=== PATIENT | male | born 1995 | race Caucasian/White ===

== ENCOUNTER 2017-04-25 21:49 | Emergency (ER) | payer MEDICAID, OTHER ==
[2017-04-25 21:54] VITALS: BP 116/64; PULSE 58; RESP 18; TEMP 98; O2SAT 98
--- NOTE | 2017-04-25 22:23 | ED PDOC ---
HPI: General Adult Time Seen by Provider: 04/25/17 22:09 Chief Complaint (Nursing): Medical Clearance Chief Complaint (Provider): Right wrist pain History Per: Patient History/Exam Limitations: no limitations Onset/Duration Of Symptoms: Days (3) Current Symptoms Are (Timing): Still Present Severity: Mild Pain Scale Rating Of: 4 Additional Complaint(s): PT states he fell 3 days ago and hurt the right wrist. Pt states that he was seen at an urgent care and diagnosed with wrist sprain. PT states his x-rays were normal. Pt states he also has a seizure disorder and takes Kepra 500mg daily. Pt has no psychiatric history and denies SI/HI. Pt calm and cooperative in ER Past Medical History Reviewed: Historical Data, Nursing Documentation, Vital Signs Vital Signs: Last Vital Signs Temp 98 F 04/25/17 21:51 Pulse 58 L 04/25/17 21:51 Resp 18 04/25/17 21:51 BP 116/64 04/25/17 21:51 Pulse Ox 98 04/25/17 21:51 - Medical History PMH: Migraine - Surgical History Surgical History: No Surg Hx - Family History Family History: States: Unknown Family Hx - Living Arrangements Living Arrangements: With Family - Social History Current smoker - smoking cessation education provided: Yes Alcohol: None Drugs: Denies - Immunization History Hx Tetanus Toxoid Vaccination: No Hx Influenza Vaccination: No Hx Pneumococcal Vaccination: No - Home Medications Home Medications: Ambulatory Orders Medication Instructions Recorded levETIRAcetam [Keppra] 500 mg PO DAILY #10 tab 04/25/17 - Allergies Allergies/Adverse Reactions: Allergies Allergy/AdvReac Type Severity Reaction Status Date / Time No Known Allergies Allergy Verified 04/25/17 21:54 Review of Systems ROS Statement: Except As Marked, All Systems Reviewed And Found Negative Constitutional: Negative for: Fever, Chills Musculoskeletal: Positive for: Other (RIght wrsit pain ) Physical Exam - Reviewed Nursing Documentation Reviewed: Yes Vital Signs Reviewed: Yes - Physical Exam Appears: Positive for: Well, Non-toxic, No Acute Distress Head Exam: Positive for: ATRAUMATIC, NORMAL INSPECTION, NORMOCEPHALIC Skin: Positive for: Normal Color, Warm, DRY Eye Exam: Positive for: Normal appearance, EOMI, PERRL ENT: Positive for: Normal ENT Inspection Neck: Positive for: Normal, Painless ROM Cardiovascular/Chest: Positive for: Regular Rate, Rhythm Respiratory: Positive for: Normal Breath Sounds. Negative for: Accessory Muscle Use, Respiratory Distress Gastrointestinal/Abdominal: Positive for: Normal Exam, Bowel Sounds, Soft Back: Positive for: Normal Inspection Extremity: Positive for: Normal ROM Neurologic/Psych: Positive for: Alert, Oriented - ECG O2 Sat by Pulse Oximetry: 98 Disposition - Clinical Impression Clinical Impression: Seizure disorder, Wrist pain - Disposition Disposition Time: 22:23 Condition: STABLE Additional Instructions: Pt is medically and psychiatrically stable for incarceration. Prescriptions: levETIRAcetam [Keppra] 500 mg PO DAILY #10 tab Instructions: Epilepsy (ED) Forms: [employer] (Danish)
== END 2017-04-25 22:56 ==
LOC: H.ER 21:49
DX: Z02.89 Encounter for other administrative examinations (principal); G40.909 Epilepsy, unspecified, not intractable, without status epilepticus; M25.531 Pain in right wrist

== ENCOUNTER 2018-08-07 23:04 | Emergency (ER) | payer MEDICAID ==
--- NOTE | 2018-08-07 23:35 | ED PDOC ---
HPI: Psych/Substance Abuse Time Seen by Provider: 08/07/18 23:14 Chief Complaint (Nursing): Substance Abuse Chief Complaint (Provider): Substance abuse History Per: Patient, EMS History/Exam Limitations: no limitations Onset/Duration Of Symptoms: Days (today) Additional Complaint(s): Pt. mom called EMS as she found him unresponsive at home. EMS gave narcan by IV and pt. responded well. He ripped out his IV and was aggressive. Brought to the ER for further eval. Pt. states he took 1 oxycontin 30mg and 2 xanax trying to get high. Denies suicidal ideation or homicidal ideation. Had alcohol. Denies trying to take meds to hurt self. On keppra for seizures. EMS stated to staff that he was stating he was suicidal when he was with them. Past Medical History Reviewed: Nursing Documentation, Vital Signs Vital Signs: Last Vital Signs Temp 98.5 F 08/07/18 23:08 Pulse 98 H 08/07/18 23:08 Resp 18 08/07/18 23:08 BP 121/78 08/07/18 23:08 Pulse Ox 99 08/07/18 23:08 - Medical History PMH: Seizures Denies: Diabetes - Surgical History Surgical History: No Surg Hx - Family History Family History: States: Unknown Family Hx - Social History Drugs: Opiates, Prescription medications - Immunization History Hx Tetanus Toxoid Vaccination: No Hx Influenza Vaccination: No Hx Pneumococcal Vaccination: No - Home Medications Home Medications: Ambulatory Orders Medication Instructions Recorded levETIRAcetam [Keppra] 500 mg PO DAILY #10 tab 04/25/17 Polymyxin/Trimethoprim Sulfate 1 drop RIGHTEYE Q3 #1 bottle 05/10/18 [Polytrim Ophth Soln] - Allergies Allergies/Adverse Reactions: Allergies Allergy/AdvReac Type Severity Reaction Status Date / Time No Known Allergies Allergy Verified 08/07/18 23:08 Review of Systems ROS Statement: Except As Marked, All Systems Reviewed And Found Negative Psych: Positive for: Suicidal ideation Physical Exam - Reviewed Nursing Documentation Reviewed: Yes Vital Signs Reviewed: Yes - Physical Exam Appears: Positive for: Non-toxic, No Acute Distress Head Exam: Positive for: ATRAUMATIC, NORMAL INSPECTION, NORMOCEPHALIC Skin: Positive for: Normal Color, Warm, DRY Eye Exam: Positive for: EOMI, Normal appearance, PERRL ENT: Positive for: Normal ENT Inspection Neck: Positive for: Normal, Painless ROM Cardiovascular/Chest: Positive for: Regular Rate, Rhythm Respiratory: Positive for: CNT, Normal Breath Sounds Gastrointestinal/Abdominal: Positive for: Normal Exam, Soft. Negative for: Tenderness Back: Positive for: Normal Inspection. Negative for: L CVA Tenderness, R CVA Tenderness Extremity: Positive for: Normal ROM. Negative for: Tenderness, Pedal Edema Neurologic/Psych: Positive for: Alert, Oriented - ECG O2 Sat by Pulse Oximetry: 99 - Progress ED Course And Treament: 2336: Dr. Moreno to take over care. Fu on crisis, labs. Disposition - Clinical Impression Clinical Impression: Substance abuse - Patient ED Disposition Is Patient to be Admitted: Transfer of Care - Disposition Disposition: Transfer of Care Disposition Time: 23:36 Condition: STABLE Patient Signed Over To: Murtaza Moreno
--- NOTE | 2018-08-07 23:47 | ED PDOC ---
- Laboratory Results Result Diagrams: 08/08/18 00:35 08/08/18 00:35 - ECG O2 Sat by Pulse Oximetry: 99 (RA) Pulse Ox Interpretation: Normal Medical Decision Making Medical Decision Makin:00 Patient care endorsed from Dr. Alvarado to me pending workup and crisis evaluation. 430AM --Patient is cleared by crisis with diagnosis of Substance Abuse by Dr. Hanley --Well appearing upon discharge --Stable vitals Scribe Attestation: Documented by Amor Lara acting as a scribe for Murtaza Moreno MD. Provider Scribe Attestation: All medical record entries made by the Scribe were at my direction and personally dictated by me. I have reviewed the chart and agree that the record accurately reflects my personal performance of the history, physical exam, medical decision making, and the department course for this patient. I have also personally directed, reviewed, and agree with the discharge instructions and disposition. Disposition - Clinical Impression Clinical Impression: Substance abuse - POA Present On Arrival: None - Disposition Referrals: [facility] [Outside] Disposition: Routine/Home Disposition Time: 04:35 Condition: IMPROVED Instructions: Drug Abuse and Drug Addiction (DC), Drug Abuse Treatment Forms: [employer] ([place]i)
[2018-08-08 00:57] LABS: BASO % 0.4 % (0.0-2.0); EOS # 0.2 K/uL (0.0-0.7); HEMOGLOBIN 14.1 g/dL (12.0-18.0); LYMPH # 1.6 K/uL (1.0-4.3); LYMPH % 17.6 % (20.0-40.0); MEAN CELL VOLUME 89.7 fl (80.0-94.0); MEAN CORPUSCULAR HEMOGLOBIN 30.2 pg (27.0-31.0); MEAN CORPUSCULAR HGB CONC 33.6 g/dL (33.0-37.0); MEAN PLATELET VOLUME 7.7 fl (7.2-11.7); MONO # 0.8 K/uL (0.0-0.8); MONO % 8.9 % (0.0-10.0); NEUT # 6.4 K/uL (1.8-7.0); NEUT % 71.1 % (50.0-75.0); RBC 4.69 Mil/uL (4.40-5.90); RED CELL DISTRIBUTION WIDTH 13.7 % (11.5-14.5)
[2018-08-08 01:02] LABS: ACETAMINOPHEN < 10.0 ug/ml (10.0-30.0); SALICYLATE < 1.0 mg/dl
[2018-08-08 01:04] LABS: ALB/GLOB RATIO 1.3 (1.0-2.1); ALBUMIN 4.1 g/dL (3.5-5.0); ALT/SGPT 25 U/L (21-72); AST/SGOT 14 U/L (17-59); BLOOD UREA NITROGEN 12 mg/dl (9-20); CALCIUM 9.1 mg/dL (8.4-10.2); GFR NON-AFRICAN AMERICAN > 60
[2018-08-08 06:46] VITALS: BP 106/65; PULSE 83; RESP 16; TEMP 97.8; O2SAT 98
== END 2018-08-08 05:23 | disposition home or self-care (01) ==
LOC: H.ER 23:04
DX: F19.10 Other psychoactive substance abuse, uncomplicated (principal)